=== PATIENT | female | born 1955 | race African-American/Black ===

== ENCOUNTER 2016-09-20 13:14 | Observation (INO) ==
[2016-09-20] MEDS ORDERED: MORPHINE 2 MG/1 ML SYRINGE IV PRN (13:55)
[2016-09-20] MEDS ORDERED: NITROGLYCERIN SL 0.4 MG TABLET SL PRN (13:55)
[2016-09-20] MEDS ORDERED: ENOXAPARIN 100 MG/ML SYRINGE SUBCUT STA (13:55)
[2016-09-20] MEDS ORDERED: ASPIRIN 325 MG TABLET PO STA (13:55)
[2016-09-20] MEDS ORDERED: NITROGLYCERIN 2% OINT 1 INCH/GM PACK TOP STA (13:55)
[2016-09-20] MEDS ORDERED: ONDANSETRON 4 MG/2 ML VIAL IV PRN (13:55)
--- NOTE | 2016-09-20 13:58 | EKG Report ---
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
--- NOTE | 2016-09-20 14:12 | Emergency Department Note ---
Navya Amaya Hilary, am scribing for, and in the presence of, Roney Jackson MD 14: 02. Renetta Amaya James D, MD, personally performed the services described in this documentation, ascribed by Claudia Mendosa in my presence, and it is both accurate and complete 410 . Arrival - Arrival Chief Complaint: Chest Pain Stated Complaint: chest pain/sent by [facility] ED Nursing Triage Note: Left sided chest pain onset last night approx 2129 with SOB - pt states that she is not having pain at this time - pt was sent from [facility] to rule out blood clot per [facility] paperwork that was sent with pt from [facility] Mode of Arrival: Ambulatory Limitations: No Limitations Source: Patient, RN Notes Reviewed Time Seen by Provider: 09/20/16 13:48 - History of Present Illness HPI Narrative: Pt is a 60 y/o black female presenting to the ED with c/o chest pain which onset 0 last night. She confirms chest pain that radiates down her arm, SOB, Cough, left side swelling and melena two days ago but denies nausea, vomiting, diaphoresis or fever. Pt has a PMHx of CHF, HTN, Depression, Vertigo, Seizures, IDDM, COPD, Diverticulitis. No other complaints or problems stated in the ED. Date of Last Menstrual Period: hyster Allergies/Adverse Reactions: Allergies Allergy/AdvReac Type Severity Reaction Status Date / Time Iodinated Contrast Media - Allergy ITCHING Verified 11/03/15 04:25 Oral and [Iodinated Contrast Media - IV Dye] povidone-iodine Allergy ITCHING Verified 11/03/15 04:25 [From Betadine] soap [From Betadine] Allergy ITCHING Verified 11/03/15 04:25 Home Medications: Home Medications Medication Instructions Recorded Confirmed Type Budesonide/Formoterol 160-4.5 2 puff INH BID 03/15/15 09/20/16 History [Symbicort 160-4.5] buPROPion HCl [Bupropion HCl Sr] 150 mg PO BID 03/15/15 09/20/16 History Furosemide 40 mg PO BID 11/01/15 09/20/16 History Meclizine [Antivert] 12.5 mg PO DAILY 11/01/15 09/20/16 History Aspirin [Ecotrin] 81 mg PO DAILY 11/24/15 09/20/16 History Insulin Glargine,Hum.rec.anlog 55 units SUBCUT BID 11/24/15 09/20/16 History [Lantus SoloStar] Albuterol Inhaler [Proventil 2 puff INH Q6H PRN 09/20/16 09/20/16 History Inhaler] Carvedilol 12.5 mg PO BID 09/20/16 09/20/16 History Cholecalciferol (Vitamin D3) 5,000 unit PO DAILY 09/20/16 09/20/16 History [Vitamin D3] Ergocalciferol (Vitamin D2) 50,000 unit PO DAILY 09/20/16 09/20/16 History [Vitamin D2] Pantoprazole Sodium 40 mg PO DAILY 09/20/16 09/20/16 History Saxagliptin HCl [Onglyza] 5 mg PO DAILY 09/20/16 09/20/16 History Spironolactone 50 mg PO DAILY 09/20/16 09/20/16 History Review of System - Review of System 12 point system: reviewed and no additional remarkable complaints except as stated - Review of System Constitutional: Absent: diaphoresis, fever Respiratory: Present: cough, respiratory distress (SOB) Cardiovascular: Present: chest pain Gastrointestinal: Absent: nausea, vomiting Medical,Surgical,& Family Hx - Medical History Cardio: History of: CHF, Hypertension Psychological: History of: Anxiety Disorders, Depression Neurology: History of: Migraine, Seizures, Vertigo HEENT: History of: Eye Problem (cataract), Glaucoma Endocrine: History of: Diabetes Mellitus (IDDM), Dyslipidemia No history of: Thyroid Disorder Respiratory: History of: Asthma, COPD, Obstructive Sleep Apnea (c-pap) Genitourinary: History of: Kidney Stones Gastrointestinal: History of: Diverticulitis/ Diverticulosis, GERD, Polyps Musculoskeletal: History of: Back/Neck Problems (disk), Musculoskeletal Problems (sees Dr. Yeung) - Surgical History Cardiac Surgeries: Comment Only: Cardiac Catheterization (scheduled 09/08/15) HEENT Surgeries: Surgical HX of: Tonsilectomy & Adenoidectomy Abdominal Surgeries: Surgical HX of: Cholecystectomy, Colonoscopy, EGD Patient denies: Appendectomy Reproductive Surgeries: Surgical HX of;: Hysterectomy Orthopedic Surgeries: Surgical HX of;: Orthopedic Surgery (right rotator cuff), Total Knee Replacement (left) - Family History Family History: Reports;: Family Cancer (grandmother), Family Diabetes (mother) , Family Heart Disease (mother and father), Family Hypertension (mother father) , Family Stroke (grandmother) - Social History Smoking Status: Former smoker Frequency of Alcohol Use: None Type of Drug Use: None Exam Physical Examination: GENERAL: This is well-developed, in no apparent distress. VITAL SIGNS: Temperature: 98.1 Pulse: 66 Respiratory: 20 Blood Pressure : 144/88 O2Sat: 98 HEENT: Head is normocephalic and atraumatic. Pupils are equally round and reactive to light. Extraocular movement are intact. Oropharynx is benign with moist mucous membranes. NECK: Neck is soft and supple without tenderness. There are no masses. There is no lymphadenopathy. LUNGS: Lungs are clear to auscultation bilaterally. Chest rises symmetrically. There is no chest wall tenderness. CV: Heart is regular rate and rhythm without murmurs, rubs, or gallops. ABDOMEN: Abdomen is soft, non-tender to palpation. There are no abnormal masses palpated. There is no organomegaly. Bowel sounds are present and active. SKIN: Skin is warm and dry. No rash. EXTREMITIES: Patient has full range of motion without tenderness. There is no pedal edema. NEUROLOGIC: Awake, alert, and oriented x4. Cranial nerves II through XII are grossly intact. There are no motorsensory deficits. PSYCHIATRIC: Normal affect. Normal mood. Vital Signs: Vital Signs Temperature 98.1 F 09/20/16 13:31 Pulse Rate 66 09/20/16 13:31 Respiratory Rate 20 09/20/16 13:31 Blood Pressure 144/88 09/20/16 13:31 O2 Sat by Pulse Oximetry 98 09/20/16 13:31 Course - Consultations Consultation #1: Discussed with hospitalist. Patient will be admitted to their service. Time: 15:14 Results - Labs CBC & BMP: 09/20/16 14:59 Lab Results: I have reviewed the patients labs - EKG EKG results: interpreted by ERMD - Impressions EKG: Junctional rhythm with a rate of 65, right bundle branch block, left anterior fascicular block, minimal voltage criteria for LVH, nonspecific ST-T wave changes. - Diagnostic Findings Procedure: Chest x-ray: image reviewed by me (Central vascular prominence could reflect evidence of pulmonary venous hypertension. No active process is otherwise suggested. ) Disposition Clinical Impression: Chest pain, Essential hypertension Case discussed with: patient Disposition: Still a Patient Condition: Stable
--- NOTE | 2016-09-20 14:26 | XRay Report ---
XR chest 2V Indication: Chest pain. Comparison: Chest x-ray 11/03/2015 Technique: PA and lateral chest x-ray was performed. Findings: The heart size appears within normal limits. Minimal atherosclerotic calcification of the aortic knob is demonstrated. Pulmonary vasculature is prominent within the central chest. Hilar structures demonstrate fairly symmetric appearance. The lungs appear clear. Bones and soft tissues demonstrate no evidence of acute pathology. Impression: 1. Central vascular prominence could reflect evidence of pulmonary venous hypertension. No active process is otherwise suggested. 09/20/2016 2:18 PM PROCEDURE INTERPRETED AT [facility] DEPARTMENT OF RADIOLOGY Final Report Signed by: Dr. Robert Harris
[2016-09-20] MEDS ORDERED: ENOXAPARIN 100 MG/ML SYRINGE SUBCUT ONE (14:38)
[2016-09-20] MEDS ORDERED: ASPIRIN 325 MG TABLET ONE (14:39)
[2016-09-20] MEDS ORDERED: ENOXAPARIN 40 MG/0.4 ML SYRINGE ONE (14:39)
[2016-09-20] MEDS ORDERED: NITROGLYCERIN 2% OINT 1 INCH/GM PACK TOP ONE (14:39)
[2016-09-20 15:06] LABS: Basophils % 0.3 % (0.0-0.8); Eosinophils # 0.1 10*3/uL (0.0-0.87); Eosinophils % 1.8 % (0.00-10.9); Hematocrit 37.1 VOL% (35.7-47.0); Hemoglobin 12.2 GM/DL (12.0-16.0); Immature Granulocytes % 0.1 %; Immature Granulocytes Absolute 0.01 #; Lymphocytes # 2.2 10*3/uL (1.4-4.0); Lymphocytes % 31.2 % (21.3-54.2); Mean Corpuscular HGB Conc 32.9 GM/DL (32-36); Mean Corpuscular Hemoglobin 28 PG (27-34); Mean Corpuscular Volume 84.7 FL (87-102); Mean Platelet Volume 13.4 FL (9.6-12.0); Monocytes # 0.7 10*3/uL (0.11-0.8); Monocytes % 9.8 % (1.7-12.7); Neutrophils % 56.8 % (38.7-73.9); Platelet Count 161 T/CUMM (130-400); Red Blood Count 4.38 MC/CUMM (3.8-5.5); Red Cell Distribution Width 14.3 % (9.3-17.3); White Blood Count 7.1 T/CUMM (4-12)
[2016-09-20 15:17] LABS: PT Patient Result 10.7 SECS; Partial Thromboplastin Time 28.5 SECS (0-40)
[2016-09-20 15:39] LABS: Albumin 3.4 G/DL (3.4-5.0); Bilirubin,Total 0.7 MG/DL (0.2-1.0); Magnesium 2.3 MG/DL (1.8-2.4); Osmolality,Calculated 290.3 MOS/KG (273-304); Potassium 4.9 MMOL/L (3.5-5.1); Total Protein 7.5 G/DL (6.4-8.3)
--- NOTE | 2016-09-20 16:25 | Hospitalist History & Physical ---
<Sanjeev Gramajo - Last Filed: 09/20/16 16:33> Assessment and Plan (1) Chest pain Status: Acute Assessment and plan: Patient admitted to telemetry. Cardiac monitoring. Serial troponins and EKGs ordered. EKG in the a.m. echo ordered. VQ scan ordered. Chest x-ray unremarkable. Current Visit: Yes (2) Essential hypertension Status: Acute Assessment and plan: Patient's home meds restarted. Current Visit: Yes (3) Congestive heart failure Status: Acute Assessment and plan: BNP ordered Current Visit: No (4) Diabetes Status: Acute Assessment and plan: Accu-Cheks before meals at bedtime. Sliding scale insulin started. A1c in a.m. Current Visit: No History of Present Illness Chief complaint: Chest pain History of present illness: Ms. Méndez is a 60 year old black female with a history of hypertension, CHF, diabetes, pulmonary edema, and obstructive sleep apnea that presented to the ED for further evaluation today after a visit to her high pressure cleaner Dr. Meadows. Patient states that she began experiencing chest pain last night around 9 PM when she laid down. Patient states that the pain started in her left chest and radiated down her arm and into her hands. Patient states that she was also short of breath at this time and that the pain was only slightly relieved when she sat up. The patient did not take any medication for the pain. She said that the chest pain was intermittent throughout the night. Patient also reports that she is having pain, swelling, and tenderness to her left lower leg. Patient states that the area is "warm all the time". Patient states that she had a test performed to Dr. Meadows's office but did not state with the test was. There were no records found of tests being performed. The patient's case has been discussed with Dr. Hedrick the patient will be admitted to the hospitalist service for further evaluation and treatment. Home Medications Medication Instructions Recorded Confirmed Type Budesonide/Formoterol 160-4.5 2 puff INH BID 03/15/15 09/20/16 History [Symbicort 160-4.5] buPROPion HCl [Bupropion HCl Sr] 150 mg PO BID 03/15/15 09/20/16 History Furosemide 40 mg PO BID 11/01/15 09/20/16 History Meclizine [Antivert] 12.5 mg PO DAILY 11/01/15 09/20/16 History Aspirin [Ecotrin] 81 mg PO DAILY 11/24/15 09/20/16 History Insulin Glargine,Hum.rec.anlog 55 units SUBCUT BID 11/24/15 09/20/16 History [Lantus SoloStar] Albuterol Inhaler [Proventil 2 puff INH Q6H PRN 09/20/16 09/20/16 History Inhaler] Carvedilol 12.5 mg PO BID 09/20/16 09/20/16 History Cholecalciferol (Vitamin D3) 5,000 unit PO DAILY 09/20/16 09/20/16 History [Vitamin D3] Ergocalciferol (Vitamin D2) 50,000 unit PO DAILY 09/20/16 09/20/16 History [Vitamin D2] Pantoprazole Sodium 40 mg PO DAILY 09/20/16 09/20/16 History Saxagliptin HCl [Onglyza] 5 mg PO DAILY 09/20/16 09/20/16 History Spironolactone 50 mg PO DAILY 09/20/16 09/20/16 History Allergies Allergy/AdvReac Type Severity Reaction Status Date / Time Iodinated Contrast Media - Allergy ITCHING Verified 11/03/15 04:25 Oral and [Iodinated Contrast Media - IV Dye] povidone-iodine Allergy ITCHING Verified 11/03/15 04:25 [From Betadine] soap [From Betadine] Allergy ITCHING Verified 11/03/15 04:25 Medical,Surgical,& Family Hx - Medical History Cardio: History of: CHF, Hypertension Psychological: History of: Anxiety Disorders, Depression Neurology: History of: Migraine, Seizures, Vertigo HEENT: History of: Eye Problem (cataract), Glaucoma Endocrine: History of: Diabetes Mellitus (IDDM), Dyslipidemia No history of: Thyroid Disorder Respiratory: History of: Asthma, COPD, Obstructive Sleep Apnea (c-pap) Genitourinary: History of: Kidney Stones Gastrointestinal: History of: Diverticulitis/ Diverticulosis, GERD, Polyps Musculoskeletal: History of: Back/Neck Problems (disk), Musculoskeletal Problems (sees Dr. Yeung) - Surgical History Cardiac Surgeries: Comment Only: Cardiac Catheterization (scheduled 09/08/15) HEENT Surgeries: Surgical HX of: Tonsilectomy & Adenoidectomy Abdominal Surgeries: Surgical HX of: Cholecystectomy, Colonoscopy, EGD Patient denies: Appendectomy Reproductive Surgeries: Surgical HX of;: Hysterectomy Orthopedic Surgeries: Surgical HX of;: Orthopedic Surgery (right rotator cuff), Total Knee Replacement (left) - Family History Family History: Reports;: Family Cancer (grandmother), Family Diabetes (mother) , Family Heart Disease (mother and father), Family Hypertension (mother father) , Family Stroke (grandmother) - Social History Smoking Status: Former smoker Frequency of Alcohol Use: None Type of Drug Use: None Lives With:: Alone Functional capacity: uses cane/walker - Constitutional Constitutional: Absent: chills, fever(s) - EENT Eyes: Present: requires corrective lense Nose, mouth and throat: Absent: headache(s), sore throat - Cardiovascular Cardiovascular: Present: chest pain at rest, chest pain with activity, dyspnea, edema - Respiratory Respiratory: Present: cough, dyspnea on exertion - Gastrointestinal Gastrointestinal: Present: abdominal pain. Absent: nausea, vomiting - Genitourinary Genitourinary: Absent: difficulty urinating, dysuria - Neurological Neurological: Absent: behavioral changes, dizziness - Psychiatric Psychiatric: Present: anxiety. Absent: confusion - Endocrine Endocrine: Present: heat intolerance Exam - Constitutional Vitals: Period Temp Pulse Resp BP Sys/Bates Pulse Ox Last 24 Hr 98.1 F 66 20 144/88 98 General appearance: normal weight, no acute distress - Head Head exam: Present: normal inspection, normocephalic - Eye Eye exam: Present: EOMI. Absent: periorbital swelling Pupils: Present: MANAV. Absent: dilated - Neck Neck exam: Absent: thyromegaly - Respiratory Respiratory exam: Present: clear to auscultation bilaterally. Absent: wheezes - Cardiovascular Cardiovascular exam: Present: regular rate and rhythm - GI/Abdominal GI/Abdominal exam: Present: normal bowel sounds, soft. Absent: tenderness - Extremities Exam Extremities exam: Present: normal capillary refill, full ROM, edema - Neurological Exam Neurological exam: Present: alert, oriented X3, normal gait - Psychiatric Psychiatric exam: Present: normal affect, normal mood, depressed - Skin Skin exam: Present: normal color, warm, dry Results - Labs CBC & BMP: 09/20/16 14:59 09/20/16 14:59 Lab Results: I have reviewed the past 24 hour labs <Talib Hedrick - Last Filed: 09/20/16 17:14> History of Present Illness History of present illness: Patient seen and examined independently of HOT OILER Gramajo, agree with history, assessment and plan as documented. 60 y/o AAF with hx of HTN, CHF, DM and MOISES who presents with episode of chest pain and sob last night. Saw her high pressure cleaner today, patient reports lower extremity dopplers were done in clinic. Troponin negative. Admitted for ACS and PE rule out. Cardiac cath performed 11/2015 without significant disease. She also has a history questionable history of blood clots. She reports a history of blood clots but denies ever being on blood thinners. Will monitor on tele, trend troponins and get a vq scan. Exam - Constitutional Vitals: Period Temp Pulse Resp BP Sys/Bates Pulse Ox Last 24 Hr 98.1 F 66 20 144/88 98 Results - Labs CBC & BMP: 09/20/16 14:59 09/20/16 14:59
[2016-09-20] MEDS ORDERED: DOCUSATE SODIUM 100 MG CAPSULE PO PRN (18:28)
[2016-09-20] MEDS ORDERED: DEXTROSE 50% 25 GM/50 ML VIAL IV PRN (18:28)
[2016-09-20] MEDS ORDERED: GLUCAGON 1 MG VIAL IM PRN (18:28)
[2016-09-20] MEDS ORDERED: ACETAMINOPHEN 325 MG TABLET PO PRN (18:28)
[2016-09-20] MEDS ORDERED: ALBUTEROL 2.5 MG/3 ML NEB RESP TX PRN (19:00)
[2016-09-20] MEDS: CARVEDILOL 12.5 MG TABLET PO SCH (21:03)
[2016-09-20] MEDS: buPROPion SR 150 MG TABLET PO SCH (21:04)
[2016-09-20] MEDS: BUDESONIDE/FORMOTEROL 160-4.5 INHALER 6 GM INH SCH (21:04)
[2016-09-20] MEDS: FUROSEMIDE 40 MG TABLET PO SCH (21:04)
[2016-09-20] MEDS: INSULIN LISPRO 100 UNIT/ML SUBCUT SCH (21:05)
--- NOTE | 2016-09-20 21:11 | Nuclear Medicine Report ---
NM lung scan vent and per Indication: Shortness of breath Comparison: V/Q scan dated July 13, 2015 Correlation with: Chest x-ray dated September 20, 2016. Radiopharmaceutical: 40 mCi of Tc 99m DTPA aerosol for the ventilation study and 5 mCi Tc 99m MAA for the perfusion study. Technique: Following inhalation of the aerosolized radiopharmaceutical, the ventilation study was performed with images of the thorax being obtained in 6 projections. Thereafter, the perfusion study was performed following the injection of radiolabeled MAA particles with images of the thorax again obtained in 6 projections. Findings: Study is of adequate diagnostic value. No moderate or large mismatched defects demonstrated. IMPRESSION: Low probability of pulmonary embolism. PROCEDURE INTERPRETED AT [facility] DEPARTMENT OF RADIOLOGY Final Report Signed by: Dr Jose Byrd
[2016-09-21 04:56] LABS: Basophils % 0.6 % (0.0-0.8); Eosinophils # 0.1 10*3/uL (0.0-0.87); Eosinophils % 2.4 % (0.00-10.9); Hematocrit 34.3 VOL% (35.7-47.0); Immature Granulocytes % 0.2 %; Immature Granulocytes Absolute 0.01 #; Lymphocytes # 1.6 10*3/uL (1.4-4.0); Lymphocytes % 32.9 % (21.3-54.2); Mean Corpuscular HGB Conc 32.1 GM/DL (32-36); Mean Corpuscular Hemoglobin 27 PG (27-34); Mean Corpuscular Volume 85.3 FL (87-102); Mean Platelet Volume 13.5 FL (9.6-12.0); Monocytes # 0.6 10*3/uL (0.11-0.8); Monocytes % 11.5 % (1.7-12.7); Neutrophils # 2.6 10*3/uL (1.4-7.4); Neutrophils % 52.4 % (38.7-73.9); Platelet Count 150 T/CUMM (130-400); Red Blood Count 4.02 MC/CUMM (3.8-5.5); Red Cell Distribution Width 14.3 % (9.3-17.3)
[2016-09-21 05:39] LABS: Bilirubin,Total 0.9 MG/DL (0.2-1.0); Calcium 8.5 MG/DL (8.5-10.1); Magnesium 2.2 MG/DL (1.8-2.4); Osmolality,Calculated 291.3 MOS/KG (273-304); Potassium 4.3 MMOL/L (3.5-5.1); Risk Ratio 4.54; Thyroid Stimulating Hormone 1.24 uIU/ml (0.358-3.74); Total Protein 6.4 G/DL (6.4-8.3); VLDL CHOLESTEROL 24.6 MG/DL
--- NOTE | 2016-09-21 07:09 | EKG Report ---
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
[2016-09-21] MEDS: BUDESONIDE/FORMOTEROL 160-4.5 INHALER 6 GM INH SCH (08:27)
[2016-09-21] MEDS: INSULIN LISPRO 100 UNIT/ML SUBCUT SCH ×2 (08:28→11:57)
[2016-09-21] MEDS: buPROPion SR 150 MG TABLET PO SCH (08:28)
[2016-09-21] MEDS: CARVEDILOL 12.5 MG TABLET PO SCH (08:28)
[2016-09-21] MEDS: FUROSEMIDE 40 MG TABLET PO SCH (08:28)
[2016-09-21] MEDS ORDERED: ASPIRIN EC 81 MG TABLET PO SCH (09:00)
[2016-09-21] MEDS ORDERED: SPIRONOLACTONE 50 MG TABLET PO SCH (09:00)
--- NOTE | 2016-09-21 10:36 | Hospitalist Progress Note ---
Hospitalist: Subjective Interval history: Mrs Méndez is feeling good today. No more chest pain or shortness of breath. One brief spell of pain in left shoulder that she did not think was her heart. VQ scan was low prob. No mention of further cardiac work up in note from Dr Meadows in clinic yesterday. Discuss with [facility]- need results of doppler done at their office. Exam - Constitutional Vitals: Period Temp Pulse Resp BP Sys/Bates Pulse Ox Last 24 Hr 96.4 F-98.2 F 60-74 16-20 122-159/58-88 97-100 Results - Labs CBC & BMP: 09/21/16 04:15 09/21/16 04:15
--- NOTE | 2016-09-21 10:57 | Discharge Summary ---
Hospital Course - Hospital Course Hospital Course: Mrs Méndez was sent to Er for VQ scan by Dr Meadows from her office yesterday. She had had a lower extremity doppler that was negative at the office. She had had some atypical chest pain and shortness of breath and Dr Meadows did not think her heart was causing it but wanted to rule out PE. Her VQ was negative and she has had no more symptoms. She will be dischaged today. I have talked to Dr Meadows to coordinate care and to make her aware of the VQ results. She will see her in clinic as arranged yesterday. - Time spent with patient Time with patient DS: Greater than 30 minutes (exam, reviewing records, calling Dr Meadows, documentation, medicine reconciliation) Diagnosis - Discharge Diagnosis (1) Atypical chest pain Status: Resolved Specialty Discharge - Follow Up or Referrals Follow up with: Daphne Meadows MD [Physician] - Your, PCP [Other] - 1 Week Discharge Plan - Discharge Data Disposition: Disch To Home/Self Care Condition at Discharge: Stable Discharge Diet: diabetic diet, heart healthy Activity: resume usual activities as tolerated - Discharge Medications Continue Budesonide/Formoterol 160-4.5 [Symbicort 160-4.5] 2 puff INH BID buPROPion HCl [Bupropion HCl Sr] 150 mg PO BID Meclizine [Antivert] 12.5 mg PO DAILY Furosemide 40 mg PO BID Insulin Glargine,Hum.rec.anlog [Lantus SoloStar] 55 units SUBCUT BID Aspirin [Ecotrin] 81 mg PO DAILY Albuterol Inhaler [Proventil Inhaler] 2 puff INH Q6H PRN PRN Reason: Shortness Of Breath/Wheezing Cholecalciferol (Vitamin D3) [Vitamin D3] 5,000 unit PO DAILY Ergocalciferol (Vitamin D2) [Vitamin D2] 50,000 unit PO DAILY Pantoprazole Sodium 40 mg PO DAILY Saxagliptin HCl [Onglyza] 5 mg PO DAILY Carvedilol 12.5 mg PO BID Spironolactone 50 mg PO DAILY - Follow Up or Referral - Forms/Instructions Exam - Constitutional Vitals: Period Temp Pulse Resp BP Sys/Bates Pulse Ox Last 24 Hr 96.4 F-98.2 F 60-74 16-20 122-159/58-88 97-100 General appearance: no acute distress, morbidly obese - Head Head exam: Present: normocephalic, atraumatic - Eye Eye exam: Present: EOMI. Absent: scleral icterus Pupils: Present: MANAV - Respiratory Respiratory exam: Present: clear to auscultation bilaterally - Cardiovascular Cardiovascular exam: Present: regular rate and rhythm. Absent: diastolic murmur , systolic murmur - GI/Abdominal GI/Abdominal exam: Present: normal bowel sounds, soft. Absent: tenderness - Extremities Exam Extremities exam: Absent: edema - Neurological Exam Neurological exam: Present: alert, oriented X3 - Skin Skin exam: Present: warm, dry Discharge Results Labs on day of discharge: Labs from last 24 hours 09/21/16 09/21/16 09/21/16 07:40 04:15 04:15 WBC RBC Hgb Hct MCV MCH MCHC RDW Plt Count MPV Neut % (Auto) Lymph % (Auto) [place] % (Auto) Eos % (Auto) Baso % (Auto) Neut # (Auto) Lymph # (Auto) [place] # (Auto) Eos # (Auto) Baso # (Auto) Immature Gran % Nucleated RBC % Immature Gran # Nucleated RBCs # INR PT Patient/Control Mix Circ Anticoag PTT Sodium Potassium Chloride Carbon Dioxide Anion Gap BUN Creatinine GFR Calculation BUN/Creatinine Ratio Glucose POC Glucose 184 H Hemoglobin A1c 8.0 H Calculated Osmolality Calcium Magnesium Total Bilirubin AST ALT Alkaline Phosphatase Troponin I B-Natriuretic Peptide Total Protein Albumin Globulin Albumin/Globulin Ratio Triglycerides Cholesterol LDL Cholesterol VLDL Cholesterol HDL Cholesterol Heart Disease Risk Ratio Free T4 1.20 TSH 3rd Generation 09/21/16 09/21/16 09/20/16 04:15 04:15 19:50 WBC 5.0 RBC 4.02 Hgb 11.0 L Hct 34.3 L MCV 85.3 L MCH 27 MCHC 32.1 RDW 14.3 Plt Count 150 MPV 13.5 H Neut % (Auto) 52.4 Lymph % (Auto) 32.9 [place] % (Auto) 11.5 Eos % (Auto) 2.4 Baso % (Auto) 0.6 Neut # (Auto) 2.6 Lymph # (Auto) 1.6 [place] # (Auto) 0.6 Eos # (Auto) 0.1 Baso # (Auto) 0.0 Immature Gran % 0.2 Nucleated RBC % 0.0 Immature Gran # 0.01 Nucleated RBCs # 0.00 INR PT Patient/Control Mix Circ Anticoag PTT Sodium 141 Potassium 4.3 Chloride 106 Carbon Dioxide 26 Anion Gap 13.3 BUN 32 H Creatinine 1.70 H GFR Calculation 53 BUN/Creatinine Ratio 18.00 Glucose 164 H POC Glucose Hemoglobin A1c Calculated Osmolality 291.3 Calcium 8.5 Magnesium 2.2 Total Bilirubin 0.90 AST 11 ALT 11 L Alkaline Phosphatase 101 Troponin I 0.024 B-Natriuretic Peptide Total Protein 6.4 Albumin 3.0 L Globulin 3.4 Albumin/Globulin Ratio 0.8 L Triglycerides 123 Cholesterol 177 LDL Cholesterol 113.0 VLDL Cholesterol 24.6 HDL Cholesterol 39 L Heart Disease Risk Ratio 4.54 Free T4 TSH 3rd Generation 1.240 09/20/16 09/20/16 09/20/16 19:34 18:04 15:00 WBC RBC Hgb Hct MCV MCH MCHC RDW Plt Count MPV Neut % (Auto) Lymph % (Auto) [place] % (Auto) Eos % (Auto) Baso % (Auto) Neut # (Auto) Lymph # (Auto) [place] # (Auto) Eos # (Auto) Baso # (Auto) Immature Gran % Nucleated RBC % Immature Gran # Nucleated RBCs # INR PT Patient/Control Mix Circ Anticoag PTT Sodium Potassium Chloride Carbon Dioxide Anion Gap BUN Creatinine GFR Calculation BUN/Creatinine Ratio Glucose POC Glucose 184 H Hemoglobin A1c Calculated Osmolality Calcium Magnesium Total Bilirubin AST ALT Alkaline Phosphatase Troponin I 0.026 B-Natriuretic Peptide 63 Total Protein Albumin Globulin Albumin/Globulin Ratio Triglycerides Cholesterol LDL Cholesterol VLDL Cholesterol HDL Cholesterol Heart Disease Risk Ratio Free T4 TSH 3rd Generation 09/20/16 09/20/16 09/20/16 14:59 14:59 14:59 WBC 7.1 RBC 4.38 Hgb 12.2 Hct 37.1 MCV 84.7 L MCH 28 MCHC 32.9 RDW 14.3 Plt Count 161 MPV 13.4 H Neut % (Auto) 56.8 Lymph % (Auto) 31.2 [place] % (Auto) 9.8 Eos % (Auto) 1.8 Baso % (Auto) 0.3 Neut # (Auto) 4.0 Lymph # (Auto) 2.2 [place] # (Auto) 0.7 Eos # (Auto) 0.1 Baso # (Auto) 0.0 Immature Gran % 0.1 Nucleated RBC % 0.0 Immature Gran # 0.01 Nucleated RBCs # 0.00 INR PT Patient/Control Mix Circ Anticoag PTT Sodium 141 Potassium 4.9 Chloride 106 Carbon Dioxide 29 Anion Gap 10.9 BUN 33 H Creatinine 1.70 H GFR Calculation 54 BUN/Creatinine Ratio 19.00 Glucose 155 H POC Glucose Hemoglobin A1c Calculated Osmolality 290.3 Calcium 9.0 Magnesium 2.3 Total Bilirubin 0.70 AST 12 ALT 12 L Alkaline Phosphatase 115 Troponin I 0.026 B-Natriuretic Peptide Total Protein 7.5 Albumin 3.4 Globulin 4.1 H Albumin/Globulin Ratio 0.8 L Triglycerides Cholesterol LDL Cholesterol VLDL Cholesterol HDL Cholesterol Heart Disease Risk Ratio Free T4 TSH 3rd Generation 09/20/16 14:59 WBC RBC Hgb Hct MCV MCH MCHC RDW Plt Count MPV Neut % (Auto) Lymph % (Auto) [place] % (Auto) Eos % (Auto) Baso % (Auto) Neut # (Auto) Lymph # (Auto) [place] # (Auto) Eos # (Auto) Baso # (Auto) Immature Gran % Nucleated RBC % Immature Gran # Nucleated RBCs # INR 1.0 PT Patient/Control Mix 10.7 Circ Anticoag PTT 28.5 Sodium Potassium Chloride Carbon Dioxide Anion Gap BUN Creatinine GFR Calculation BUN/Creatinine Ratio Glucose POC Glucose Hemoglobin A1c Calculated Osmolality Calcium Magnesium Total Bilirubin AST ALT Alkaline Phosphatase Troponin I B-Natriuretic Peptide Total Protein Albumin Globulin Albumin/Globulin Ratio Triglycerides Cholesterol LDL Cholesterol VLDL Cholesterol HDL Cholesterol Heart Disease Risk Ratio Free T4 TSH 3rd Generation DS: Provider Date of admission: 09/20/16 15:57 Primary care physician: . No PCP Attending physician on admission: Talib Hedrick MD Consults: 09/21/16 07:56 Consult to [facility], Educator [CONS] Routine Reason for Operations/Dispatch: Diabetes Education Diet Discharging clinician: Nimo Wren MD
[2016-09-21 11:42] VITALS: BP 131/72
--- NOTE | 2016-09-21 12:35 | ECHO Report ---
Olivia Méndez Exam Date: 09/21/2016 07:17 Referring Physician: Technologist: leyda Ramirez ARDMS, RVT Age: 60 Ht (in): 70 Wt (lb): 308 Gender: F Exam Location: [facility] Echo Indications: Chest pain, unspecified, Essential (primary) hypertension, Heart failure, unspecified, diabetes BP: 137 / 63 HR: 60 Rhythm: Sinus Technical Quality: average IMPRESSIONS Left ventricular ejection fraction is estimated at 60 %. Normal diastolic parameters. Mildly calcified aortic valve without significant sclerosis or stenosis. Tricuspid regurgitation velocities suggest a RVSP of 29 mmHg plus the right atrial pressure. MEASUREMENTS (Male / Female) Normal Values 2D ECHO LV Diastolic Diameter PLAX 5.1 cm 4.2 - 5.9 / 3.9 - 5.3 cm LV Systolic Diameter PLAX 2.5 cm LV Fractional Shortening PLAX 50.3 % IVS Diastolic Thickness 1.4 cm 0.6 - 1.0 / 0.6 - 0.9 cm LVPW Diastolic Thickness 1.1 cm 0.6 - 1.0 / 0.6 - 0.9 cm RV Internal Dim ED PLAX 2.8 cm Aortic Root Diameter 3.2 cm LA Systolic Diameter LX 4.1 cm 3.0 - 4.0 / 2.7 - 3.8 cm DOPPLER TR Peak Velocity 271.0 cm/s TR Peak Gradient 29.4 mmHg FINDINGS Left Ventricle Normal left ventricular cavity size. Mild left ventricular hypertrophy. Left ventricular ejection fraction is estimated at 60 %. Normal diastolic parameters Right Ventricle The right ventricle is normal in size and function. Right Atrium The right atrium is mildly enlarged. Left Atrium The left atrium is mildly enlarged. Mitral Valve Morphologically normal mitral valve without significant stenosis or prolapse. There is no mitral regurgitation. Aortic Valve Mildly calcified aortic valve without significant sclerosis or stenosis. There is no aortic regurgitation. Tricuspid Valve Morphologically normal tricuspid valve. Mild tricuspid valve regurgitation. Tricuspid regurgitation velocities suggest a RVSP of 29 mmHg plus the right atrial pressure. Pulmonic Valve Morphologically normal pulmonic valve. Trace pulmonary valve regurgitation. Pericardium Normal pericardium without effusion. Aorta Normal ascending aorta dimension. Angle Driver (Electronically Signed) Final Date: 21 September 2016 12:34
== END 2016-09-21 12:59 | disposition home or self-care (01) ==
LOC: N.ED 13:14 → N.EDINP 13:14 → SUATTDRO 15:57 → N.TELEN 17:40
PROVIDERS: ADMIT Internal Medicine; ATTEND Internal Medicine

== ENCOUNTER 2017-08-21 16:31 | Inpatient (IN) ==
[2017-08-21 18:22] LABS: Basophils % 0.5 % (0.0-0.8); Eosinophils # 0.2 10*3/uL (0.0-0.87); Eosinophils % 2.4 % (0.00-10.9); Hematocrit 37.5 VOL% (35.7-47.0); Immature Granulocytes % 0.2 %; Immature Granulocytes Absolute 0.01 #; Lymphocytes # 1.9 10*3/uL (1.4-4.0); Lymphocytes % 31.4 % (21.3-54.2); Mean Corpuscular Hemoglobin 27 PG (27-34); Mean Corpuscular Volume 84.8 FL (87-102); Mean Platelet Volume 14.1 FL (9.6-12.0); Monocytes # 0.7 10*3/uL (0.11-0.8); Monocytes % 10.6 % (1.7-12.7); Neutrophils # 3.4 10*3/uL (1.4-7.4); Neutrophils % 54.9 % (38.7-73.9); Platelet Count 163 T/CUMM (130-400); Red Blood Count 4.42 MC/CUMM (3.8-5.5); Red Cell Distribution Width 14.6 % (9.3-17.3); White Blood Count 6.1 T/CUMM (4-12)
[2017-08-21 19:01] LABS: Albumin 3.2 G/DL (3.4-5.0); Bilirubin,Total 0.4 MG/DL (0.2-1.0); Osmolality,Calculated 287.3 MOS/KG (273-304); Potassium 4.1 MMOL/L (3.5-5.1); Thyroid Stimulating Hormone 57.4 uIU/ml (0.358-3.74); Total Protein 7.9 G/DL (6.4-8.3); Troponin I Only 0.017 NG/ML (0.00-0.045)
[2017-08-21] MEDS ORDERED: DEXTROSE 50% 25 GM/50 ML VIAL IV PRN (20:55)
[2017-08-21] MEDS ORDERED: FUROSEMIDE 40 MG/4 ML VIAL IV ONE (20:55)
[2017-08-21] MEDS ORDERED: MORPHINE 4 MG/1 ML VIAL IV PRN (20:55)
[2017-08-21] MEDS ORDERED: ONDANSETRON 4 MG/2 ML VIAL IV PRN (20:55)
[2017-08-21] MEDS ORDERED: GLUCAGON 1 MG VIAL IM PRN (20:55)
[2017-08-21] MEDS ORDERED: ALBUTEROL 2.5 MG/3 ML NEB RESP TX PRN (20:55)
[2017-08-21 21:16] LABS: Risk Ratio 5.96; VLDL CHOLESTEROL 43.6 MG/DL
[2017-08-21] MEDS: traZODone 50 MG TABLET PO SCH (22:01)
[2017-08-21] MEDS: INSULIN REGULAR 100 UNIT/ML SUBCUT SCH (22:01)
[2017-08-21] MEDS: DOCUSATE SODIUM 100 MG CAPSULE PO SCH (22:01)
[2017-08-21] MEDS: CARVEDILOL 25 MG TABLET PO SCH (22:01)
[2017-08-21] MEDS: INSULIN GLARGINE 100 UNIT/ML SUBCUT SCH (22:02)
[2017-08-21] MEDS: FUROSEMIDE 40 MG TABLET PO SCH (22:03)
[2017-08-21] MEDS: ENOXAPARIN 40 MG/0.4 ML SYRINGE SUBCUT SCH (22:06)
[2017-08-21] MEDS: BUDESONIDE/FORMOTEROL 160-4.5 INHALER 6 GM INH SCH (22:06)
[2017-08-22] MEDS: ZALEPLON 5 MG CAPSULE PO PRN ×2 (00:16→22:20)
[2017-08-22] MEDS: LEVOTHYROXINE 75 MCG TABLET PO SCH (06:25)
[2017-08-22] MEDS: CARVEDILOL 25 MG TABLET PO SCH ×2 (09:43→22:21)
[2017-08-22] MEDS: PANTOPRAZOLE 40 MG TABLET PO SCH (09:43)
[2017-08-22] MEDS: SPIRONOLACTONE 50 MG TABLET PO SCH (09:43)
[2017-08-22] MEDS: DILTIAZEM CD 180 MG CAPSULE PO SCH (09:43)
[2017-08-22] MEDS: CALCIUM (CARBONATE) 500 MG TABLET PO SCH (09:43)
[2017-08-22] MEDS: ASPIRIN EC 81 MG TABLET PO SCH (09:44)
[2017-08-22] MEDS: DOCUSATE SODIUM 100 MG CAPSULE PO SCH ×2 (09:44→22:21)
[2017-08-22] MEDS: GLIMEPIRIDE 4 MG TABLET PO SCH (09:44)
[2017-08-22] MEDS: sitaGLIPtin 100 MG TABLET PO SCH (09:44)
[2017-08-22] MEDS: INSULIN GLARGINE 100 UNIT/ML SUBCUT SCH ×2 (09:45→22:19)
[2017-08-22] MEDS: INSULIN REGULAR 100 UNIT/ML SUBCUT SCH ×4 (09:49→22:20)
[2017-08-22] MEDS: FUROSEMIDE 40 MG TABLET PO SCH ×2 (09:49→22:20)
[2017-08-22] MEDS: BUDESONIDE/FORMOTEROL 160-4.5 INHALER 6 GM INH SCH ×2 (11:09→22:27)
[2017-08-22] MEDS ORDERED: LEVOTHYROXINE 100 MCG TABLET PO ONE (20:16)
[2017-08-22] MEDS: traZODone 50 MG TABLET PO SCH (22:20)
[2017-08-22] MEDS: ENOXAPARIN 40 MG/0.4 ML SYRINGE SUBCUT SCH (22:27)
[2017-08-23 05:16] LABS: Basophils % 0.3 % (0.0-0.8); Eosinophils # 0.2 10*3/uL (0.0-0.87); Eosinophils % 2.4 % (0.00-10.9); Hematocrit 35.9 VOL% (35.7-47.0); Hemoglobin 11.6 GM/DL (12.0-16.0); Immature Granulocytes % 0.3 %; Immature Granulocytes Absolute 0.02 #; Lymphocytes % 40.1 % (21.3-54.2); Mean Corpuscular HGB Conc 32.3 GM/DL (32-36); Mean Corpuscular Hemoglobin 27 PG (27-34); Mean Corpuscular Volume 84.7 FL (87-102); Mean Platelet Volume 14.4 FL (9.6-12.0); Monocytes # 0.7 10*3/uL (0.11-0.8); Neutrophils # 3.6 10*3/uL (1.4-7.4); Neutrophils % 47.9 % (38.7-73.9); Platelet Count 170 T/CUMM (130-400); Red Blood Count 4.24 MC/CUMM (3.8-5.5); Red Cell Distribution Width 14.7 % (9.3-17.3); White Blood Count 7.4 T/CUMM (4-12)
[2017-08-23 05:49] LABS: Bilirubin,Total 0.6 MG/DL (0.2-1.0); Calcium 8.4 MG/DL (8.5-10.1); Osmolality,Calculated 283.3 MOS/KG (273-304); Potassium 4.1 MMOL/L (3.5-5.1); Total Protein 6.8 G/DL (6.4-8.3)
[2017-08-23] MEDS: LEVOTHYROXINE 75 MCG TABLET PO SCH (05:53)
[2017-08-23] MEDS: GLIMEPIRIDE 4 MG TABLET PO SCH (08:32)
[2017-08-23] MEDS: INSULIN REGULAR 100 UNIT/ML SUBCUT SCH ×4 (08:32→21:37)
[2017-08-23] MEDS: INSULIN GLARGINE 100 UNIT/ML SUBCUT SCH ×2 (08:33→21:37)
[2017-08-23] MEDS: sitaGLIPtin 100 MG TABLET PO SCH (08:33)
[2017-08-23] MEDS: CARVEDILOL 25 MG TABLET PO SCH ×2 (09:17→21:38)
[2017-08-23] MEDS: DILTIAZEM CD 180 MG CAPSULE PO SCH (09:17)
[2017-08-23] MEDS: PANTOPRAZOLE 40 MG TABLET PO SCH (09:19)
[2017-08-23] MEDS: CALCIUM (CARBONATE) 500 MG TABLET PO SCH (09:19)
[2017-08-23] MEDS: BUDESONIDE/FORMOTEROL 160-4.5 INHALER 6 GM INH SCH ×2 (09:19→21:44)
[2017-08-23] MEDS: SPIRONOLACTONE 50 MG TABLET PO SCH (09:19)
[2017-08-23] MEDS: FUROSEMIDE 40 MG TABLET PO SCH ×2 (09:19→21:38)
[2017-08-23] MEDS: ASPIRIN EC 81 MG TABLET PO SCH (09:19)
[2017-08-23] MEDS: DOCUSATE SODIUM 100 MG CAPSULE PO SCH ×2 (09:19→21:38)
[2017-08-23] MEDS: ENOXAPARIN 40 MG/0.4 ML SYRINGE SUBCUT SCH (21:37)
[2017-08-23] MEDS: traZODone 50 MG TABLET PO SCH (21:38)
[2017-08-24 06:01] LABS: Calcium 8.3 MG/DL (8.5-10.1); Osmolality,Calculated 284.5 MOS/KG (273-304); Potassium 4.3 MMOL/L (3.5-5.1)
[2017-08-24 06:24] LABS: Free T4 (Free Thyroxine) 0.45 NG/DL (0.76-1.46); Thyroid Stimulating Hormone 73.5 uIU/ml (0.358-3.74)
[2017-08-24] MEDS: LEVOTHYROXINE 75 MCG TABLET PO SCH (07:01)
[2017-08-24 08:29] LABS: ABG Base Excess 1.6 MMOL/L (-2.5-2.5); ABG HCO3 25.8 MMOL/L (20-26); ABG Oxygen Saturation 97.3 % (95-100); ABG PH 7.461 (7.35-7.45); ABG PO2 88.6 MM HG (80-95); ABG TCO2 21.9 MMOL/L (23-27)
[2017-08-24] MEDS: INSULIN REGULAR 100 UNIT/ML SUBCUT SCH ×4 (09:54→22:33)
[2017-08-24] MEDS: DILTIAZEM CD 180 MG CAPSULE PO SCH (09:55)
[2017-08-24] MEDS: INSULIN GLARGINE 100 UNIT/ML SUBCUT SCH ×2 (09:55→22:34)
[2017-08-24] MEDS: PANTOPRAZOLE 40 MG TABLET PO SCH (09:55)
[2017-08-24] MEDS: CARVEDILOL 25 MG TABLET PO SCH ×2 (09:56→20:17)
[2017-08-24] MEDS: FUROSEMIDE 40 MG TABLET PO SCH ×2 (09:56→20:17)
[2017-08-24] MEDS: DOCUSATE SODIUM 100 MG CAPSULE PO SCH ×2 (09:56→20:18)
[2017-08-24] MEDS: ASPIRIN EC 81 MG TABLET PO SCH (09:56)
[2017-08-24] MEDS: sitaGLIPtin 100 MG TABLET PO SCH (09:56)
[2017-08-24] MEDS: BUDESONIDE/FORMOTEROL 160-4.5 INHALER 6 GM INH SCH ×2 (09:57→21:13)
[2017-08-24] MEDS: LEVOTHYROXINE 100 MCG VIAL IV SCH (09:57)
[2017-08-24] MEDS: GLIMEPIRIDE 4 MG TABLET PO SCH (09:57)
[2017-08-24] MEDS: SPIRONOLACTONE 50 MG TABLET PO SCH (09:57)
[2017-08-24] MEDS: CALCIUM (CARBONATE) 500 MG TABLET PO SCH (09:57)
[2017-08-24] MEDS: traZODone 50 MG TABLET PO SCH (20:17)
[2017-08-24] MEDS: ENOXAPARIN 40 MG/0.4 ML SYRINGE SUBCUT SCH (20:18)
[2017-08-25] MEDS: LEVOTHYROXINE 100 MCG VIAL IV SCH (06:46)
[2017-08-25] MEDS: SPIRONOLACTONE 50 MG TABLET PO SCH (09:22)
[2017-08-25] MEDS: INSULIN GLARGINE 100 UNIT/ML SUBCUT SCH ×2 (09:23→21:43)
[2017-08-25] MEDS: sitaGLIPtin 100 MG TABLET PO SCH (09:23)
[2017-08-25] MEDS: DOCUSATE SODIUM 100 MG CAPSULE PO SCH ×2 (09:23→21:42)
[2017-08-25] MEDS: PANTOPRAZOLE 40 MG TABLET PO SCH (09:23)
[2017-08-25] MEDS: DILTIAZEM CD 180 MG CAPSULE PO SCH (09:23)
[2017-08-25] MEDS: INSULIN REGULAR 100 UNIT/ML SUBCUT SCH ×4 (09:23→21:43)
[2017-08-25] MEDS: GLIMEPIRIDE 4 MG TABLET PO SCH (09:23)
[2017-08-25] MEDS: CARVEDILOL 25 MG TABLET PO SCH ×2 (09:23→21:43)
[2017-08-25] MEDS: CALCIUM (CARBONATE) 500 MG TABLET PO SCH (09:24)
[2017-08-25] MEDS: FUROSEMIDE 40 MG TABLET PO SCH ×2 (09:24→21:54)
[2017-08-25] MEDS: BUDESONIDE/FORMOTEROL 160-4.5 INHALER 6 GM INH SCH ×2 (09:24→21:50)
[2017-08-25] MEDS: ASPIRIN EC 81 MG TABLET PO SCH (09:24)
[2017-08-25] MEDS: traZODone 50 MG TABLET PO SCH (21:41)
[2017-08-25] MEDS: ENOXAPARIN 40 MG/0.4 ML SYRINGE SUBCUT SCH (21:43)
[2017-08-26 05:27] LABS: Basophils % 0.5 % (0.0-0.8); Eosinophils # 0.2 10*3/uL (0.0-0.87); Eosinophils % 2.4 % (0.00-10.9); Hematocrit 34.6 VOL% (35.7-47.0); Hemoglobin 11.2 GM/DL (12.0-16.0); Immature Granulocytes % 0.2 %; Immature Granulocytes Absolute 0.01 #; Lymphocytes # 2.2 10*3/uL (1.4-4.0); Lymphocytes % 33.1 % (21.3-54.2); Mean Corpuscular HGB Conc 32.4 GM/DL (32-36); Mean Corpuscular Hemoglobin 27 PG (27-34); Mean Corpuscular Volume 84.6 FL (87-102); Mean Platelet Volume 13.5 FL (9.6-12.0); Monocytes # 0.7 10*3/uL (0.11-0.8); Monocytes % 10.5 % (1.7-12.7); Neutrophils # 3.6 10*3/uL (1.4-7.4); Neutrophils % 53.3 % (38.7-73.9); Platelet Count 153 T/CUMM (130-400); Red Blood Count 4.09 MC/CUMM (3.8-5.5); Red Cell Distribution Width 14.9 % (9.3-17.3); White Blood Count 6.7 T/CUMM (4-12)
[2017-08-26 06:03] LABS: Albumin 3.1 G/DL (3.4-5.0); Calcium 8.1 MG/DL (8.5-10.1); Free T4 (Free Thyroxine) 0.57 NG/DL (0.76-1.46); Osmolality,Calculated 286.5 MOS/KG (273-304); Potassium 4.3 MMOL/L (3.5-5.1); Total Protein 6.7 G/DL (6.4-8.3)
[2017-08-26] MEDS: LEVOTHYROXINE 100 MCG VIAL IV SCH (06:08)
[2017-08-26] MEDS ORDERED: ERGOCALCIFEROL 50,000 UNIT CAPSULE PO SCH (09:00)
[2017-08-26] MEDS: INSULIN REGULAR 100 UNIT/ML SUBCUT SCH ×4 (09:04→21:42)
[2017-08-26] MEDS: CALCIUM (CARBONATE) 500 MG TABLET PO SCH (09:06)
[2017-08-26] MEDS: CARVEDILOL 25 MG TABLET PO SCH ×2 (09:06→21:41)
[2017-08-26] MEDS: INSULIN GLARGINE 100 UNIT/ML SUBCUT SCH ×3 (09:06→21:42)
[2017-08-26] MEDS: GLIMEPIRIDE 4 MG TABLET PO SCH (09:06)
[2017-08-26] MEDS: ASPIRIN EC 81 MG TABLET PO SCH (09:06)
[2017-08-26] MEDS: SPIRONOLACTONE 50 MG TABLET PO SCH (09:06)
[2017-08-26] MEDS: DILTIAZEM CD 180 MG CAPSULE PO SCH (09:06)
[2017-08-26] MEDS: PANTOPRAZOLE 40 MG TABLET PO SCH (09:06)
[2017-08-26] MEDS: FUROSEMIDE 40 MG TABLET PO SCH ×2 (09:06→21:42)
[2017-08-26] MEDS: sitaGLIPtin 100 MG TABLET PO SCH (09:06)
[2017-08-26] MEDS: DOCUSATE SODIUM 100 MG CAPSULE PO SCH ×2 (09:06→21:41)
[2017-08-26] MEDS: BUDESONIDE/FORMOTEROL 160-4.5 INHALER 6 GM INH SCH ×2 (09:08→21:43)
[2017-08-26] MEDS: traZODone 50 MG TABLET PO SCH (21:41)
[2017-08-26] MEDS: ENOXAPARIN 40 MG/0.4 ML SYRINGE SUBCUT SCH (21:42)
[2017-08-27 05:44] LABS: Calcium 8.8 MG/DL (8.5-10.1); Osmolality,Calculated 284.5 MOS/KG (273-304); Potassium 4.4 MMOL/L (3.5-5.1)
[2017-08-27 05:55] LABS: Free T4 (Free Thyroxine) 0.57 NG/DL (0.76-1.46); Thyroid Stimulating Hormone 86.2 uIU/ml (0.358-3.74)
[2017-08-27] MEDS: LEVOTHYROXINE 100 MCG VIAL IV SCH (06:43)
[2017-08-27] MEDS: PANTOPRAZOLE 40 MG TABLET PO SCH ×3 (08:33→21:14)
[2017-08-27] MEDS: CALCIUM (CARBONATE) 500 MG TABLET PO SCH (08:33)
[2017-08-27] MEDS: CARVEDILOL 25 MG TABLET PO SCH ×2 (08:33→21:14)
[2017-08-27] MEDS: FUROSEMIDE 40 MG TABLET PO SCH ×2 (08:34→21:14)
[2017-08-27] MEDS: GLIMEPIRIDE 4 MG TABLET PO SCH (08:34)
[2017-08-27] MEDS: SPIRONOLACTONE 50 MG TABLET PO SCH (08:34)
[2017-08-27] MEDS: DILTIAZEM CD 180 MG CAPSULE PO SCH (08:34)
[2017-08-27] MEDS: ASPIRIN EC 81 MG TABLET PO SCH (08:34)
[2017-08-27] MEDS: sitaGLIPtin 100 MG TABLET PO SCH (08:34)
[2017-08-27] MEDS: DOCUSATE SODIUM 100 MG CAPSULE PO SCH ×2 (08:34→21:14)
[2017-08-27] MEDS: INSULIN GLARGINE 100 UNIT/ML SUBCUT SCH ×2 (08:35→21:13)
[2017-08-27] MEDS: INSULIN REGULAR 100 UNIT/ML SUBCUT SCH ×4 (08:35→21:14)
[2017-08-27] MEDS: BUDESONIDE/FORMOTEROL 160-4.5 INHALER 6 GM INH SCH ×2 (08:37→21:14)
[2017-08-27] MEDS: traZODone 50 MG TABLET PO SCH (21:14)
[2017-08-27] MEDS: ENOXAPARIN 40 MG/0.4 ML SYRINGE SUBCUT SCH (21:14)
[2017-08-28 06:05] LABS: Albumin 3.1 G/DL (3.4-5.0); Bilirubin,Total 1.1 MG/DL (0.2-1.0); Calcium 8.3 MG/DL (8.5-10.1); Osmolality,Calculated 283.8 MOS/KG (273-304); Potassium 4.3 MMOL/L (3.5-5.1); Total Protein 6.9 G/DL (6.4-8.3)
[2017-08-28] MEDS: INSULIN REGULAR 100 UNIT/ML SUBCUT SCH ×2 (08:45→11:46)
[2017-08-28] MEDS: INSULIN GLARGINE 100 UNIT/ML SUBCUT SCH (09:11)
[2017-08-28] MEDS: sitaGLIPtin 100 MG TABLET PO SCH (09:11)
[2017-08-28] MEDS: GLIMEPIRIDE 4 MG TABLET PO SCH (09:12)
[2017-08-28] MEDS: FUROSEMIDE 40 MG TABLET PO SCH (09:12)
[2017-08-28] MEDS: ASPIRIN EC 81 MG TABLET PO SCH (09:12)
[2017-08-28] MEDS: DILTIAZEM CD 180 MG CAPSULE PO SCH (09:12)
[2017-08-28] MEDS: CALCIUM (CARBONATE) 500 MG TABLET PO SCH (09:12)
[2017-08-28] MEDS: BUDESONIDE/FORMOTEROL 160-4.5 INHALER 6 GM INH SCH (09:13)
[2017-08-28] MEDS: CARVEDILOL 25 MG TABLET PO SCH (09:13)
[2017-08-28] MEDS: DOCUSATE SODIUM 100 MG CAPSULE PO SCH (09:13)
[2017-08-28] MEDS: SPIRONOLACTONE 50 MG TABLET PO SCH (09:13)
[2017-08-28] MEDS: PANTOPRAZOLE 40 MG TABLET PO SCH (09:13)
[2017-08-28 12:00] VITALS: BP 134/70
== END 2017-08-28 14:55 | disposition home or self-care (01) | DRG 424 ==
LOC: N.ED 16:31 → SUATTDRO 19:46 → N.EDINP 19:46 → N.TELEN 20:06
PROVIDERS: ADMIT Family Medicine; ATTEND Internal Medicine

== ENCOUNTER 2019-03-22 18:59 | Observation (INO) ==
[2019-03-22 22:03] LABS: Basophils % 0.1 % (0.0-0.8); Eosinophils # 0.2 10*3/uL (0.0-0.87); Eosinophils % 2.3 % (0.00-10.9); Hematocrit 32.4 VOL% (35.7-47.0); Hemoglobin 10.1 GM/DL (12.0-16.0); Immature Granulocytes % 0.3 %; Immature Granulocytes Absolute 0.02 #; Lymphocytes % 28.1 % (21.3-54.2); Mean Corpuscular HGB Conc 31.2 GM/DL (32-36); Mean Corpuscular Volume 87.3 FL (87-102); Mean Platelet Volume 12.8 FL (9.6-12.0); Monocytes % 9.2 % (1.7-12.7); Platelet Count 216 T/CUMM (130-400); Red Blood Count 3.71 MC/CUMM (3.8-5.5); Red Cell Distribution Width 15.5 % (9.3-17.3)
[2019-03-22] MEDS ORDERED: FUROSEMIDE 40 MG/4 ML VIAL IV STA (22:21)
[2019-03-22 22:27] LABS: Bilirubin,Total 0.7 MG/DL (0.2-1.0)
[2019-03-22] MEDS ORDERED: NITROGLYCERIN SL 0.4 MG TABLET SL STA (22:35)
[2019-03-22] MEDS ORDERED: FUROSEMIDE 100 MG/10 ML VIAL IV STA (22:39)
[2019-03-22] MEDS ORDERED: INSULIN REGULAR 100 UNIT/ML IV STA (22:43)
[2019-03-22] MEDS ORDERED: DEXTROSE 50% 25 GM/50 ML VIAL IV STA (22:43)
[2019-03-22] MEDS ORDERED: DEXTROSE 50% 25 GM/50 ML SYRINGE IV ONE (22:55)
[2019-03-22] MEDS ORDERED: ONDANSETRON 4 MG/2 ML VIAL IV PRN (23:50)
[2019-03-22] MEDS ORDERED: GLUCAGON 1 MG VIAL IM PRN (23:50)
[2019-03-22] MEDS ORDERED: MAGNESIUM SULF RIDER 4 GM in PREMIX 1 EACH IV PRN (23:50)
[2019-03-22] MEDS ORDERED: MAGNESIUM SULF RIDER 2 GM in PREMIX 1 EACH IV PRN (23:50)
[2019-03-22] MEDS ORDERED: DEXTROSE 50% 25 GM/50 ML VIAL IV PRN (23:50)
[2019-03-22] MEDS ORDERED: ONDANSETRON ODT 4 MG TABLET PO PRN (23:59)
[2019-03-22] MEDS ORDERED: MECLIZINE 12.5 MG TABLET PO PRN (23:59)
[2019-03-23] MEDS ORDERED: SODIUM POLYSTYRENE SULFATE 15 GM/60 ML BOTTLE PO ONE (00:01)
[2019-03-23] MEDS ORDERED: DEXTROSE 50% 25 GM/50 ML VIAL IV PRN (00:45)
[2019-03-23 04:51] LABS: Albumin 2.7 G/DL (3.4-5.0); Bilirubin,Total 0.7 MG/DL (0.2-1.0); Calcium 7.7 MG/DL (8.5-10.1); Osmolality,Calculated 295.8 MOS/KG (273-304); Total Protein 7.2 G/DL (6.4-8.3)
[2019-03-23] MEDS: LEVOTHYROXINE 200 MCG TABLET PO SCH (06:25)
[2019-03-23] MEDS ORDERED: POTASSIUM CHLORIDE 10 MEQ TABLET PO SCH (09:00)
[2019-03-23] MEDS ORDERED: ERGOCALCIFEROL 50,000 UNIT CAPSULE PO SCH (09:00)
[2019-03-23] MEDS ORDERED: PANTOPRAZOLE 40 MG TABLET PO SCH (09:00)
[2019-03-23] MEDS ORDERED: GABAPENTIN 300 MG CAPSULE PO SCH ×2 (09:00→21:00)
[2019-03-23] MEDS ORDERED: SPIRONOLACTONE 50 MG TABLET PO SCH (09:00)
[2019-03-23] MEDS ORDERED: DILTIAZEM HCL 360 MG PO SCH (09:00)
[2019-03-23 09:52] LABS: Calcium 7.9 MG/DL (8.5-10.1); Osmolality,Calculated 295.5 MOS/KG (273-304)
[2019-03-23 09:54] LABS: Risk Ratio 3.38; VLDL CHOLESTEROL 23.2 MG/DL
[2019-03-23 11:11] LABS: Basophils % 0.1 % (0.0-0.8); Eosinophils # 0.1 10*3/uL (0.0-0.87); Hematocrit 34.1 VOL% (35.7-47.0); Hemoglobin 10.5 GM/DL (12.0-16.0); Immature Granulocytes % 0.2 %; Immature Granulocytes Absolute 0.02 #; Lymphocytes # 1.8 10*3/uL (1.4-4.0); Mean Corpuscular HGB Conc 30.8 GM/DL (32-36); Mean Corpuscular Volume 88.1 FL (87-102); Mean Platelet Volume 13.9 FL (9.6-12.0); Monocytes % 6.4 % (1.7-12.7); Neutrophils % 70.3 % (38.7-73.9); Platelet Count 210 T/CUMM (130-400); Red Blood Count 3.87 MC/CUMM (3.8-5.5); Red Cell Distribution Width 15.6 % (9.3-17.3); White Blood Count 8.2 T/CUMM (4-12)
[2019-03-23] MEDS: INSULIN REGULAR 100 UNIT/ML SUBCUT SCH ×4 (13:19→21:21)
[2019-03-23] MEDS: LACTULOSE 20 GM/30 ML UDCUP PO SCH (13:20)
[2019-03-23] MEDS: carvediloL 6.25 MG TABLET PO SCH ×2 (13:25→19:04)
[2019-03-23] MEDS: FUROSEMIDE 40 MG/4 ML VIAL IV SCH ×2 (13:25→18:56)
[2019-03-23] MEDS: PANTOPRAZOLE 40 MG TABLET PO SCH (13:25)
[2019-03-23] MEDS: buPROPion XL 150 MG TABLET PO SCH (13:25)
[2019-03-23] MEDS: APIXABAN 5 MG TABLET PO SCH ×2 (13:25→21:20)
[2019-03-23] MEDS: DOCUSATE SODIUM 100 MG CAPSULE PO SCH (13:28)
[2019-03-23 14:00] LABS: Apearance,Urine CLEAR (Clear); Bilirubin,Urine Negative (Negative); Blood, Urine Negative (Negative); Glucose,Urine (UA) Negative (Negative); Ketones,Urine Negative (Negative); Nitrite,Urine Negative (Negative); Protein,Urine 100 MG/DL; RBC,Urine <1 /HPF (0-4); Squamous Epithelial Cell,Urine Occasional /HPF (0-10); Urine Color Straw (Yellow); Urine Specific Gravity 1.009 (1.001-1.035); Urine Urobilinogen < 2.0 EU/DL (0.2-1.0); WBC,Urine 1 /HPF (0-6)
[2019-03-23] MEDS: BUDESONIDE/FORMOTEROL 160-4.5 INHALER 6 GM INH SCH ×2 (18:56→23:49)
[2019-03-23] MEDS ORDERED: ATORVASTATIN 10 MG TABLET PO SCH (21:00)
[2019-03-24 05:38] LABS: Basophils % 0.2 % (0.0-0.8); Eosinophils # 0.2 10*3/uL (0.0-0.87); Eosinophils % 3.4 % (0.00-10.9); Hematocrit 29.8 VOL% (35.7-47.0); Hemoglobin 9.3 GM/DL (12.0-16.0); Immature Granulocytes % 0.2 %; Immature Granulocytes Absolute 0.01 #; Lymphocytes # 1.9 10*3/uL (1.4-4.0); Lymphocytes % 33.7 % (21.3-54.2); Mean Corpuscular HGB Conc 31.2 GM/DL (32-36); Mean Corpuscular Volume 86.4 FL (87-102); Mean Platelet Volume 13.3 FL (9.6-12.0); Monocytes % 9.2 % (1.7-12.7); Neutrophils % 53.3 % (38.7-73.9); Platelet Count 198 T/CUMM (130-400); Red Blood Count 3.45 MC/CUMM (3.8-5.5); Red Cell Distribution Width 15.3 % (9.3-17.3); White Blood Count 5.6 T/CUMM (4-12)
[2019-03-24 05:49] LABS: Calcium 7.8 MG/DL (8.5-10.1); Osmolality,Calculated 289.5 MOS/KG (273-304); Osmolality,Calculated 290.5 MOS/KG (273-304)
[2019-03-24] MEDS: LEVOTHYROXINE 200 MCG TABLET PO SCH (06:43)
[2019-03-24 08:42] LABS: Immuno Free Light Chain Kappa 16.67 MG/DL (0.33-1.94); Immuno Free Light Chain Lambda 9.11 MG/DL (0.57-2.63); Immuno Free Light Chain Ratio 1.83 MG/DL (0.26-1.65)
[2019-03-24] MEDS: INSULIN REGULAR 100 UNIT/ML SUBCUT SCH ×2 (08:50→13:25)
[2019-03-24] MEDS ORDERED: metOLazone 5 MG TABLET PO SCH (09:00)
[2019-03-24 09:17] LABS: Albumin (SPE) 4.1 G/DL (3.2-5.3); Albumin (SPE) Rel % 51.3 %; Alpha 1 (SPE) 0.2 G/DL (0.1-0.4); Alpha 1 (SPE) Rel % 3.1 %; Alpha 2 (SPE) Rel % 12.3 %; Beta (SPE) 0.8 G/DL (0.5-1.1); Beta (SPE) Rel % 10.6 %; Gamma (SPE) 1.8 G/DL (0.7-1.7); Gamma (SPE) Rel % 22.7 %
[2019-03-24 09:27] LABS: Albumin (UPER) Rel% 60.6 %; Alpha 1 (UPER) Rel% 8.1 %; Alpha 2 (UPER) Rel % 6.7 %; Beta (UPER) Rel % 6.7 %; Gamma (UPER) Rel % 17.9 %
[2019-03-24 09:29] LABS: Albumin (UPER) 42.4 MG/DL; Alpha 1 (UPER) 5.7 MG/DL; Alpha 2 (UPER) 4.7 MG/DL; Beta (UPER) 4.7 MG/DL; Gamma (UPER) 12.5 MG/DL
[2019-03-24] MEDS: LACTULOSE 20 GM/30 ML UDCUP PO SCH (09:30)
[2019-03-24] MEDS: APIXABAN 5 MG TABLET PO SCH (09:31)
[2019-03-24] MEDS: buPROPion XL 150 MG TABLET PO SCH (09:31)
[2019-03-24] MEDS: PANTOPRAZOLE 40 MG TABLET PO SCH (09:32)
[2019-03-24] MEDS: DOCUSATE SODIUM 100 MG CAPSULE PO SCH (09:32)
[2019-03-24] MEDS: BUDESONIDE/FORMOTEROL 160-4.5 INHALER 6 GM INH SCH (09:33)
[2019-03-24] MEDS: carvediloL 6.25 MG TABLET PO SCH (09:35)
[2019-03-24] MEDS: FUROSEMIDE 40 MG/4 ML VIAL IV SCH (09:35)
[2019-03-24 12:06] VITALS: BP 130/72
== END 2019-03-24 16:15 | disposition home or self-care (01) ==
LOC: N.ED 18:59 → N.EDINP 18:59 → N.2W 03-23 00:48
PROVIDERS: ADMIT Internal Medicine; ATTEND Internal Medicine